=== PATIENT | male | born 1995 | race Hispanic/Latino ===

== ENCOUNTER 2024-01-20 18:01 | Emergency (ER) | payer OTHER ==
[2024-01-20] MEDS ORDERED: SILVER NITRATE 1 APPL TOP ONE ×2 (18:09→18:38)
--- NOTE | 2024-01-20 19:23 | RAD REPORT ---
EXAM DESCRIPTION: US - Extremity Venous Uni Ltd - 01/20/2024 7:16 pm CLINICAL HISTORY: bleeding vein Leg swelling and edema. COMPARISON: <Comparisons> FINDINGS: Left lower extremity there is vein was interrogated. No thrombus seen.
--- NOTE | 2024-01-20 19:50 | ER ---
Nurse's Notes [facility] Name: Jarvis Thomson Age: 28 yrs Sex: Male : 1995 Arrival Date: 01/20/2024 Time: 18:01 Bed 8 Private MD: Diagnosis: Varicose veins of left lower extremities with other complications-bleeding Presentation: 01/19 18:03 Chief complaint: EMS states: they were toned out for bleeding to the left leg. pt kc6 states a vein just popped in his leg and it was squirting blood. denies injury. Coronavirus screen: At this time, the client does not indicate any symptoms associated with coronavirus-19. Ebola Screen: No symptoms or risks identified at this time. Initial Sepsis Screen: Does the patient meet any 2 criteria? No. Patient's initial sepsis screen is negative. Does the patient have a suspected source of infection? No. Patient's initial sepsis screen is negative. Risk Assessment: Do you want to hurt yourself or someone else? Patient reports no desire to harm self or others. Onset of symptoms was January 20, 2024. 18:03 Method Of Arrival: EMS: [facility] kc6 18:03 Acuity: LORE 3 kc6 Triage Assessment: 18:05 General: Appears in no apparent distress. comfortable, obese, well groomed, well kc6 developed, Behavior is calm, cooperative, appropriate for age. Pain: Complains of pain in left morin. EENT: No signs and/or symptoms were reported regarding the EENT system. Neuro: Level of Consciousness is awake, alert, obeys commands, Oriented to person, place, time, situation, Appropriate for age Reports dizziness. Cardiovascular: Capillary refill < 3 seconds. Respiratory: Airway is patent Trachea midline Respiratory effort is even, unlabored, Respiratory pattern is regular, symmetrical. GI: No signs and/or symptoms were reported involving the gastrointestinal system. : No signs and/or symptoms were reported regarding the genitourinary system. Derm: No signs and/or symptoms reported regarding the dermatologic system. Skin is intact, is healthy with good turgor, Skin is dry, Skin is pale, Skin temperature is warm. Musculoskeletal: Circulation, motion, and sensation intact. Capillary refill < 3 seconds, Range of motion: intact in all extremities. Historical: - Allergies: 18:05 SHELLFISH; kc6 - Home Meds: 18:05 None [Active]; kc6 - PMHx: 18:05 None; kc6 - PSHx: 18:05 None; kc6 - Immunization history:: Adult Immunizations up to date. - Infectious Disease History:: Denies. - Social history:: Smoking status: Patient denies any tobacco usage or history of. Screenin:07 [facility] ED Fall Risk Assessment (Adult) History of falling in the last 3 months, kc6 including since admission No falls in past 3 months (0 pts) Confusion or Disorientation No (0 pts) Intoxicated or Sedated No (0 pts) Impaired Gait No (0 pts) Mobility Assist Device Used No (0 pt) Altered Elimination No (0 pt) Score/Fall Risk Level 0 - 2 = Low Risk. Abuse screen: Denies threats or abuse. Denies injuries from another. Nutritional screening: No deficits noted. Tuberculosis screening: No symptoms or risk factors identified. Assessment: 18:06 Reassessment: please see triage. [facility] 18:50 Reassessment: Patient appears in no apparent distress at this time. No changes from kc6 previously documented assessment. Patient and/or family updated on plan of care and expected duration. Pain level reassessed. Patient is alert, oriented x 3, equal unlabored respirations, skin warm/dry/pink. 20:06 Reassessment: Patient and/or family updated on plan of care and expected duration. Pain tm6 level reassessed. Patient is alert, oriented x 3, equal unlabored respirations, skin warm/dry/pink. General: Appears in no apparent distress. Behavior is calm, cooperative. Vital Signs: 18:03 BP 123 / 65; Pulse 53; Resp 16 S; Temp 98.4(O); Pulse Ox 100% on R/A; Weight 136.08 kg kc6 (R); Height 5 ft. 9 in. (R); 18:50 BP 127 / 80; Pulse 58; Resp 15 S; Pulse Ox 100% on R/A; kc6 20:05 BP 111 / 78; Pulse 72; Resp 19; Temp 97.4(TE); Pulse Ox 100% on R/A; Pain 0/10; tm6 18:03 Body Mass Index 44.30 (136.08 kg, 175.26 cm) [facility] 20:05 Pain Scale: Adult tm6 ED Course: 18:03 Patient arrived in ED. kc6 18:03 Valerie Akers PA-C is PHCP. sb4 18:03 Fabrizio Naik MD is Attending Physician. sb4 18:05 Triage completed. kc6 18:05 Arm band placed on. kc6 18:07 Patient has correct armband on for positive identification. Bed in low position. Call kc6 light in reach. Side rails up X2. Security at bedside. Pulse ox on. NIBP on. Pillow given. 18:11 Nadeen Clifton, RN is Primary Nurse. kc6 19:18 Extremity Venous [facility] US In Process Unspecified. EDMS 20:06 No provider procedures requiring assistance completed. Patient did not have IV access tm6 during this emergency room visit. 20:07 Provided Education on: follow up with PCP. tm6 Administered Medications: 18:34 Drug: Silver Nitrate Applicators Topical 2 application Topical once; to bedside {Note: kc6 left lower leg.} Route: Topical; Site: affected area; Medication: 20:07 VIS not applicable for this client. tm6 Outcome: 19:50 Discharge ordered by . sb4 20:06 Discharged to Law Enforcement tm6 20:06 Condition: stable 20:06 Discharge instructions given to patient, [place] [employer] 20:07 Patient left the ED. tm6 Signatures: Dispatcher [employer] Nadeen Marie, RN RN kc6 Valerie Akers PA-C PA-C sb4 Kole Neves RN RN tm6 Corrections: (The following items were deleted from the chart) 18:05 18:05 Allergies: No Known Allergies; kc6 kc6
--- NOTE | 2024-01-20 19:50 | EDPHYS ---
Physician Documentation [facility] Name: Jarvis Thomson Age: 28 yrs Sex: Male : 1995 Arrival Date: 01/20/2024 Time: 18:01 Bed 8 Private MD: ED Physician Fabrizio Naik HPI: 01/19 18:10 This 28 yrs old Male presents to ER via EMS with complaints of Leg Injury. sb4 18:10 patient states a varicose vein in his left calf started bleeding out of nowhere. states sb4 the same thing happened a few years ago on the same spot, resolved with pressure dressing. he states he had an ultrasound done but never learned the results. he denies any chronic medical problems, no blood thinner use. Historical: - Allergies: 18:05 SHELLFISH; kc6 - Home Meds: 18:05 None [Active]; kc6 - PMHx: 18:05 None; kc6 - PSHx: 18:05 None; kc6 - Immunization history:: Adult Immunizations up to date. - Infectious Disease History:: Denies. - Social history:: Smoking status: Patient denies any tobacco usage or history of. ROS: 18:10 Constitutional: Negative for fever, chills, and weight loss, sb4 18:10 Skin: Positive for per HPI, 18:10 All other systems are negative, Exam: 18:10 Constitutional: This is a well developed, well nourished patient who is awake, alert, sb4 and in no acute distress. Head/Face: Normocephalic, atraumatic. Eyes: Extra-ocular motions intact. Periorbital areas with no swelling, redness, or edema. ENT: Mucous membranes moist. 18:10 Skin: lesion(s), noted, and can be described as bleeding, located on the lateral aspect of left calf, Vital Signs: 18:03 BP 123 / 65; Pulse 53; Resp 16 S; Temp 98.4(O); Pulse Ox 100% on R/A; Weight 136.08 kg kc6 (R); Height 5 ft. 9 in. (R); 18:50 BP 127 / 80; Pulse 58; Resp 15 S; Pulse Ox 100% on R/A; kc6 20:05 BP 111 / 78; Pulse 72; Resp 19; Temp 97.4(TE); Pulse Ox 100% on R/A; Pain 0/10; tm6 18:03 Body Mass Index 44.30 (136.08 kg, 175.26 cm) kc6 20:05 Pain Scale: Adult tm6 MDM: 18:03 Patient medically screened. sb4 19:35 Data reviewed: vital signs, nurses notes, radiologic studies, and as a result, I will sb4 discharge patient. Counseling: I had a detailed discussion with the patient and/or guardian regarding the historical points, exam findings, and any diagnostic results supporting the discharge/admit diagnosis, radiology results, to return to the emergency department if symptoms worsen or persist or if there are any questions or concerns that arise at home. 01/19 18:41 Order name: Extremity Venous Uni Ltd ; Complete Time: 19:25 sb4 Administered Medications: 18:34 Drug: Silver Nitrate Applicators Topical 2 application Topical once; to bedside {Note: kc6 left lower leg.} Route: Topical; Site: affected area; Disposition Summary: 01/20/24 19:50 Discharge Ordered Notes: Location: Home sb4 Problem: new sb4 Symptoms: have improved sb4 Condition: Stable sb4 Diagnosis - Varicose veins of left lower extremities with other complications - bleeding sb4 Followup: sb4 - With: Emergency Department - When: As needed - Reason: Worsening of condition Discharge Instructions: - Discharge Summary Sheet sb4 - Bleeding Varicose Veins sb4 Forms: - Patient Portal Instructions sb4 - Leadership Thank You Letter sb4 Addendum: 01/23/2024 07:06 Co-signature as Attending Physician, Fabrizio Naik MD I reviewed the patient's care r n provided by the Advanced Practice Provider and agree with the diagnosis and treatment plan. Signatures: Dispatcher [employer] EDFabrizio Curran MD MD rn Campbell, Kaitlyn, RN RN kc6 Brown, Sophia, PA-C PABerenice sb4 Corrections: (The following items were deleted from the chart) 01/19 18:05 18:05 Allergies: No Known Allergies; kc6 kc6
[2024-01-20 20:37] VITALS: BP 111/78; TEMP 97.4; O2SAT 100
== END 2024-01-20 20:07 | disposition home or self-care (01) ==
LOC: ER 18:01
DX: I83.892 Varicose veins of left lower extremity with other complications (principal)
CPT/HCPCS: 93971; 99284